=== PATIENT | female | born 1995 | race African-American/Black ===

== ENCOUNTER 2019-07-07 13:35 | Emergency (ER) | payer SELFPAY ==
[~2019-07-07] VITALS: Ht 170.2 cm; Wt 102.0 kg
[2019-07-07 17:09] VITALS: BP 121/68
== END 2019-07-07 17:12 | disposition home or self-care (01) ==
LOC: ER 13:35
DX: F20.9 Schizophrenia, unspecified (principal); F41.9 Anxiety disorder, unspecified; F12.10 Cannabis abuse, uncomplicated; F17.200 Nicotine dependence, unspecified, uncomplicated
CPT/HCPCS: 93005; 99284

== ENCOUNTER 2019-07-09 23:30 | Emergency (ER) | payer SELFPAY ==
[~2019-07-09] VITALS: Ht 162.6 cm; Wt 118.0 kg
[2019-07-10 00:01] VITALS: BP 136/79
== END 2019-07-10 02:30 | disposition left against medical advice (07) ==
LOC: ER 23:30
DX: R51 Headache (principal); Z53.21 Procedure and treatment not carried out due to patient leaving prior to being seen by health care provider
CPT/HCPCS: 81025; 99282

== ENCOUNTER 2019-07-16 21:17 | Emergency (ER) | payer MEDICAID | END 2019-07-17 00:13 | disposition left against medical advice (07) | LOC: ER 21:17 | DX: Z53.21 Procedure and treatment not carried out due to patient leaving prior to being seen by health care provider (principal) ==

== ENCOUNTER 2019-08-15 22:43 | Emergency (ER) | payer MEDICAID ==
[~2019-08-15] VITALS: Ht 162.6 cm; Wt 101.6 kg
[2019-08-16] MEDS ORDERED: DIPHENHYDRAMINE 25MG CAPSULE PO ONE (03:15)
[2019-08-16 04:05] VITALS: BP 128/74
== END 2019-08-16 04:09 | disposition home or self-care (01) ==
LOC: ER 22:57
DX: T78.49XA Other allergy, initial encounter (principal); X58.XXXA Exposure to other specified factors, initial encounter; F17.290 Nicotine dependence, other tobacco product, uncomplicated; F12.10 Cannabis abuse, uncomplicated
CPT/HCPCS: 81025; 99282; Q0163

== ENCOUNTER 2020-01-27 20:14 | Emergency (ER) | payer MEDICAID, OTHER ==
[~2020-01-27] VITALS: Ht 160 cm; Wt 108.8 kg
[2020-01-27] MEDS ORDERED: IBUPROFEN 600MG TABLET PO STA (20:26)
[2020-01-27 21:25] LABS: BASOPHILS % 0.2 % (0.0-2.0); HEMATOCRIT. 39.3 % (36.0-48.0); HEMOGLOBIN. 12.9 g/dL (12.0-16.0); LYMPHOCYTES % 34.1 % (20.0-50.0); MEAN CORPUSCULAR VOLUME 88.5 fL (81.0-99.0); MEAN PLATELET VOLUME 11.3 fl (7.4-10.4); NEUTROPHILS % 55.7 % (40.0-76.0); PLATELET 247 x1000/uL (130-400); RED BLOOD CELL COUNT 4.44 mill/uL (4.2-5.4); RED CELL DISTRIBUTION WIDTH 13.7 % (11.6-14.6)
[2020-01-27 21:39] LABS: CLARITY URINE CLEAR (CLEAR); COLOR URINE YELLOW (YELLOW); KETONES URINE TRACE (NEGATIVE); LEUKOCYTE ESTERASE URINE TRACE (NEGATIVE); NITRITE URINE NEGATIVE (NEGATIVE); OCCULT BLOOD URINE 2+ (NEGATIVE); PH URINE 5.5 (4.5-8.0); PROTEIN URINE NEGATIVE (NEGATIVE); SPECIFIC GRAVITY URINE 1.033 (1.005-1.030)
[2020-01-27 21:56] LABS: *AMPHETAMINES SCREEN URINE NEGATIVE (NEGATIVE); *BARBITURATES SCREEN URINE NEGATIVE (NEGATIVE); *BENZODIAZEPINES SCREEN URINE NEGATIVE (NEGATIVE); *COCAINE SCREEN URINE NEGATIVE (NEGATIVE); METHADONE URINE SCREEN NEGATIVE (NEGATIVE); OPIATES URINE SCREEN NEGATIVE (NEGATIVE)
[2020-01-27 21:58] LABS: CANNABINOID URINE SCREEN PRESUMTIVE POSITIVE (NEGATIVE); PHENCYCLIDINE URINE SCREEN PRESUMTIVE POSITIVE (NEGATIVE)
[2020-01-27 22:31] LABS: HCG SCREEN NEGATIVE
[2020-01-27 23:42] LABS: INR 0.9
[2020-01-27 23:45] LABS: CHLORIDE 107 mEq/L (98-107)
[2020-01-27 23:49] LABS: ETHANOL BLOOD < 10 mg/dL
[2020-01-27 23:53] LABS: CREATINE KINASE 60 IU/L (26-192)
[2020-01-28] MEDS ORDERED: IBUPROFEN 600MG TABLET PO ONE (13:15)
[2020-01-28] MEDS ORDERED: IBUPROFEN 600MG TABLET PO NR (20:03)
[2020-01-29 13:56] VITALS: BP 121/65
== END 2020-01-29 14:35 ==
LOC: ER 20:14
DX: F25.0 Schizoaffective disorder, bipolar type (principal); R45.851 Suicidal ideations; R45.850 Homicidal ideations; F16.10 Hallucinogen abuse, uncomplicated; F12.90 Cannabis use, unspecified, uncomplicated; J02.9 Acute pharyngitis, unspecified; Z91.14 Patient's other noncompliance with medication regimen
CPT/HCPCS: 36415; 71045; 80053; 80305; 80320; 80329; 81003; 81025; 82550; 83880; 84484; 84703; 85025; 87070; 87430; 93005; 99285; G0480